=== PATIENT | male | born 2005 | race Caucasian/White ===

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

== ENCOUNTER 2025-01-11 17:55 | Outpatient (RCR) | payer OTHER, SELFPAY | END 2025-01-11 23:59 | disposition home or self-care (01) | LOC: RPT 17:55 | PROVIDERS: ATTENDING PHYSICIAN Nurse Practitioner | DX: R42 Dizziness and giddiness (principal); Z73.6 Limitation of activities due to disability | CPT/HCPCS: 97112; 97162 ==

== ENCOUNTER 2025-02-03 16:57 | Outpatient (RCR) | payer OTHER, SELFPAY | END 2025-02-03 23:59 | disposition home or self-care (01) | LOC: RPT 16:57 | PROVIDERS: ATTENDING PHYSICIAN Nurse Practitioner | DX: R42 Dizziness and giddiness (principal); Z73.6 Limitation of activities due to disability; R26.2 Difficulty in walking, not elsewhere classified | CPT/HCPCS: 97110; 97112 ==

== ENCOUNTER 2025-03-19 11:08 | Outpatient (RCR) | payer OTHER, SELFPAY | END 2025-03-19 23:59 | disposition home or self-care (01) | LOC: RPT 11:08 | PROVIDERS: ATTENDING PHYSICIAN Nurse Practitioner | DX: R42 Dizziness and giddiness (principal); Z73.6 Limitation of activities due to disability; R26.2 Difficulty in walking, not elsewhere classified | CPT/HCPCS: 97110; 97112 ==

== ENCOUNTER 2025-04-19 13:46 | Outpatient (RCR) | payer OTHER, SELFPAY | END 2025-04-19 23:59 | disposition home or self-care (01) | LOC: RPT 13:46 | PROVIDERS: ATTENDING PHYSICIAN Nurse Practitioner | DX: R42 Dizziness and giddiness (principal); Z73.6 Limitation of activities due to disability; R26.2 Difficulty in walking, not elsewhere classified | CPT/HCPCS: 97110; 97112 ==

== ENCOUNTER 2025-05-17 08:21 | Outpatient (RCR) | payer OTHER, SELFPAY | END 2025-05-17 23:59 | disposition home or self-care (01) | LOC: RPT 08:21 | PROVIDERS: ATTENDING PHYSICIAN Nurse Practitioner | DX: R42 Dizziness and giddiness (principal); Z73.6 Limitation of activities due to disability; R26.2 Difficulty in walking, not elsewhere classified | CPT/HCPCS: 97110; 97112 ==

== ENCOUNTER 2025-06-14 10:24 | Outpatient (RCR) | payer OTHER, SELFPAY | END 2025-06-14 23:59 | disposition home or self-care (01) | LOC: RPT 10:24 | PROVIDERS: ATTENDING PHYSICIAN Nurse Practitioner | DX: R42 Dizziness and giddiness (principal); Z73.6 Limitation of activities due to disability; R26.2 Difficulty in walking, not elsewhere classified | CPT/HCPCS: 97110; 97112; 97530 ==

== ENCOUNTER 2025-07-05 10:27 | Outpatient (RCR) | payer OTHER, SELFPAY | END 2025-07-05 23:59 | disposition home or self-care (01) | LOC: RPT 10:27 | PROVIDERS: ATTENDING PHYSICIAN Nurse Practitioner | DX: R42 Dizziness and giddiness (principal); Z73.6 Limitation of activities due to disability; R26.2 Difficulty in walking, not elsewhere classified | CPT/HCPCS: 97110; 97112 ==